=== PATIENT | female | born 1955 | race Caucasian/White ===

== ENCOUNTER 2017-04-15 08:16 | Day surgery (SDC) | payer BC ==
[~2017-04-15 08:16] MED LIST: RINGER'S SOLUTION,LACTATED 1,000 ML IV PRN
[2017-04-15] MEDS ORDERED: RINGER'S SOLUTION,LACTATED 1,000 ML IV ONE (09:02)
[2017-04-15] MEDS ORDERED: RINGER'S SOLUTION,LACTATED 1,000 ML IV PRN (09:31)
[2017-04-15] MEDS ORDERED: PANTOPRAZOLE SODIUM 40 MG/100 ML PIGGYBACK IV ONE (09:49)
[2017-04-15] MEDS: PANTOPRAZOLE SODIUM 40 MG in NORMAL SALINE 100 ML IV ONE ×2 (10:00→10:25)
[2017-04-15 10:39] VITALS: BP 133/78
--- NOTE | 2017-04-15 20:45 | OR ---
Operative Report - Dictated Report Narrative: Operative Report Date of operation: 04/14/2017 Preoperative diagnosis: Dysphagia Postoperative diagnosis: Esophagitis. Hiatal hernia. Gastritis (pathology and CLOtest pending Operation: EGD with biopsies. Balloon dilation of the GE junction to 20 mm Surgeon: Dr Clifton Anesthesia: [facility] C[facility] Indications for procedure: Patient is a 61-year-old female referred by Dr. Page. She has an 8 month history of difficulty swallowing. Solid food will lie just at the subxiphoid level. Esophagram reveals dysmotility, a hiatal hernia, and possible narrowing at the GE junction. The patient has MS. She has a baclofen pump Findings: Distal esophagitis. Hiatal hernia. Significant gastritis with areas of focal healing erosions. (Pathology and CLOtest pending) Narrative of procedure: The patient was identified preoperatively, and prior to the administration of anesthetic a multidisciplinary timeout was observed With the patient in the recumbent position, a bite-block was placed, intravenous sedation administered, and the patient's eyes covered with a towel. The flexible fiberoptic gastroscope was advanced into the posterior pharynx which appeared normal. The supraglottic larynx appeared normal. The cords appeared normal, moved well, and opposed in the midline. The scope was advanced under direct vision into the proximal esophagus which appeared normal. The esophagus appeared freely distensible with normal mucosa. Tertiary contractions were observed. The esophageal mucosa appeared normal down to the gastroesophageal junction which was sharp with evidence of inflammation. The GE junction appeared normally distensible. There was a sliding hiatal hernia. The scope was advanced into the stomach proper which was insufflated with air. There was briones gastric erythema with areas of focal erosion on gastric folds. A retroflex view of the gastric fundus demonstrated the hiatal hernia but revealed no additional lesions. The scope was redirected toward the pylorus. The pylorus appeared patent. The scope was advanced into the duodenal bulb which appeared normal. The scope was advanced further to the horizontal portion of the duodenum which appeared normal, specifically the villous architecture appeared well preserved and clear bile was present. The scope was slowly withdrawn through the duodenal bulb with confirmation that no active ulcer was present. The scope was withdrawn into the stomach and ambulatory service representative biopsies of gastric mucosa obtained for CLOtest and pathology. The biopsy sites were seen to be hemostatic. A balloon dilator was deployed in the stomach and withdrawn to lie across the GE junction which was dilated in stages to 20 mm. The balloon passed freely through the area. There was minimal bleeding which had stopped by the end of the procedure. The insufflated air was removed from the stomach, the scope withdrawn from the patient, and the procedure terminated. The patient tolerated the anesthetic and procedure well without complication and was transferred back to the ambulatory surgery area awake and in stable condition. The patient remained stable throughout a period of postoperative observation, was able to tolerate po intake, and was up without assistance. I shared the operative findings with her and her , and she was given copies of the photographs which appear in the medical record. She was given a single dose of Protonix 40 mg IV prior to discharge. She was discharged home with instructions not to engage in hazardous activity today, but may return to normal activity tomorrow and advance diet as tolerated. She is to continue medications as listed in the history and physical exam. I made arrangements to contact the patient with the biopsy reports and will make further recommendation based upon that result. Reviewed and electronically signed
== END 2017-04-15 08:17 | disposition home or self-care (01) ==
LOC: AMB 08:16
PROVIDERS: ATTEND Surgery
PROC: 0D748ZZ Dilation of Esophagogastric Junction, Via Natural or Artificial Opening Endoscopic (ICD-10-PCS; 2017-04-15)
PROC: 0DB78ZX Excision of Stomach, Pylorus, Via Natural or Artificial Opening Endoscopic, Diagnostic (ICD-10-PCS; principal; 2017-04-15 09:00)
DX: K22.4 Dyskinesia of esophagus (principal); K20.9 Esophagitis, unspecified; K44.9 Diaphragmatic hernia without obstruction or gangrene; K29.70 Gastritis, unspecified, without bleeding; I10 Essential (primary) hypertension; E03.9 Hypothyroidism, unspecified; G35 Multiple sclerosis; Z87.891 Personal history of nicotine dependence; Z68.24 Body mass index [BMI] 24.0-24.9, adult